=== PATIENT | male | born 1995 | race African-American/Black ===

== ENCOUNTER 2017-02-23 11:28 | Emergency (ER) | payer OTHER ==
[~2017-02-23] VITALS: Ht 175.3 cm; Wt 62.1 kg
[2017-02-23 13:02] VITALS: BP 128/67
== END 2017-02-23 13:02 | disposition home or self-care (01) ==
LOC: ED 11:28
DX: S01.81XA Laceration without foreign body of other part of head, initial encounter (principal); K03.81 Cracked tooth; Y04.0XXA Assault by unarmed brawl or fight, initial encounter; Y93.89 Activity, other specified; Y99.8 Other external cause status; Y92.89 Other specified places as the place of occurrence of the external cause
CPT/HCPCS: 90715

== ENCOUNTER 2018-03-25 18:21 | Emergency (ER) | payer OTHER ==
[~2018-03-25] VITALS: Ht 182.9 cm; Wt 58.5 kg
[2018-03-25 18:26] VITALS: Ht 182.9 cm; Wt 58.5 kg
[2018-03-25 21:08] VITALS: BP 111/52
== END 2018-03-25 21:08 | disposition home or self-care (01) ==
LOC: ED 18:21
DX: S60.221A Contusion of right hand, initial encounter (principal); S90.32XA Contusion of left foot, initial encounter; S30.0XXA Contusion of lower back and pelvis, initial encounter; V09.9XXA Pedestrian injured in unspecified transport accident, initial encounter; Y93.01 Activity, walking, marching and hiking; Y92.89 Other specified places as the place of occurrence of the external cause; Y99.8 Other external cause status
CPT/HCPCS: 90715

== ENCOUNTER 2018-07-05 19:04 | Emergency (ER) | payer OTHER ==
[~2018-07-05] VITALS: Ht 175.3 cm; Wt 56.2 kg
[2018-07-05 19:08] VITALS: Ht 175.3 cm; Wt 56.2 kg
[2018-07-05 21:53] VITALS: BP 138/77
== END 2018-07-05 21:53 | disposition home or self-care (01) ==
LOC: ED 19:04
DX: S51.811A Laceration without foreign body of right forearm, initial encounter (principal); G56.21 Lesion of ulnar nerve, right upper limb; X78.0XXA Intentional self-harm by sharp glass, initial encounter; Y93.89 Activity, other specified; Y92.89 Other specified places as the place of occurrence of the external cause; Y99.8 Other external cause status
CPT/HCPCS: 90715; J1885; J2001

== ENCOUNTER 2018-07-27 04:46 | Emergency (ER) | payer OTHER ==
[~2018-07-27] VITALS: Ht 182.9 cm; Wt 58.5 kg
[2018-07-27 04:51] VITALS: Ht 182.9 cm; Wt 58.5 kg
[2018-07-27 06:01] VITALS: BP 125/71
== END 2018-07-27 06:01 | disposition home or self-care (01) ==
LOC: ED 04:46
DX: G89.18 Other acute postprocedural pain (principal); M79.601 Pain in right arm
CPT/HCPCS: J3010; Q0162

== ENCOUNTER 2018-07-31 17:12 | Emergency (ER) | payer OTHER ==
[~2018-07-31] VITALS: Ht 182.9 cm; Wt 56.7 kg
[2018-07-31 17:30] VITALS: Ht 182.9 cm; Wt 56.7 kg
[2018-07-31 18:31] VITALS: BP 126/70
== END 2018-07-31 18:31 | disposition home or self-care (01) ==
LOC: ED 17:12
DX: G89.18 Other acute postprocedural pain (principal); R03.0 Elevated blood-pressure reading, without diagnosis of hypertension; Z76.0 Encounter for issue of repeat prescription; Z98.890 Other specified postprocedural states
CPT/HCPCS: J1885

== ENCOUNTER 2018-08-16 21:35 | Emergency (ER) | payer OTHER ==
[2018-08-16 22:02] VITALS: Ht 182.9 cm
[2018-08-16 23:21] VITALS: BP 138/70
== END 2018-08-16 23:21 | disposition home or self-care (01) ==
LOC: ED 21:35
DX: L03.012 Cellulitis of left finger (principal); F32.9 Major depressive disorder, single episode, unspecified